=== PATIENT | male | born 1955 | race African-American/Black ===

== ENCOUNTER 2018-07-11 07:57 | Emergency (ER) | payer MEDICARE, MEDICAID ==
[~2018-07-11] VITALS: Ht 172.7 cm; Wt 75.0 kg
[2018-07-11] MEDS ORDERED: ATEN-42 PO (08:02)
[2018-07-11 08:26] VITALS: BP 134/76
[2018-07-11] MEDS ORDERED: SODIUM CHLORIDE 0.9% 1,000 ML IV ONE (09:19)
[2018-07-11 09:23] LABS: BASOPHILS % 0.5 % (0.0-2.0); HEMATOCRIT. 31.7 % (42.0-52.0); HEMOGLOBIN. 10.2 g/dL (14.0-18.0); LYMPHOCYTES % 8.3 % (20.0-50.0); MEAN CORPUSCULAR HEMOGLOBIN 29.9 pg (28.0-32.0); MEAN CORPUSCULAR VOLUME 93.3 fL (80.0-94.0); MONOCYTES % 7.3 % (2.0-8.0); NEUTROPHILS % 82.9 % (40.0-76.0); PLATELET 196 x1000/uL (130-400); RED CELL DISTRIBUTION WIDTH 18.8 % (11.6-14.6)
[2018-07-11 09:29] LABS: CHLORIDE 100 mEq/L (98-107)
== END 2018-07-11 12:00 | disposition home or self-care (01) ==
LOC: ER 07:57
DX: R55 Syncope and collapse (principal); N28.9 Disorder of kidney and ureter, unspecified; M19.90 Unspecified osteoarthritis, unspecified site; I10 Essential (primary) hypertension; G89.29 Other chronic pain; M54.9 Dorsalgia, unspecified; I12.9 Hypertensive chronic kidney disease with stage 1 through stage 4 chronic kidney disease, or unspecified chronic kidney disease; Z88.0 Allergy status to penicillin; Z88.6 Allergy status to analgesic agent
CPT/HCPCS: 36415; 70450; 71045; 80053; 84484; 85025; 93005; 96360; 99284; J7030

== ENCOUNTER 2019-04-22 10:25 | Inpatient (IN) | payer MEDICARE, MEDICAID ==
[~2019-04-22] VITALS: Ht 175.3 cm; Wt 74.4 kg
[~2019-04-22 10:25] MED LIST: ATEN-42 PO
[2019-04-22] MEDS ORDERED: SODIUM CHLORIDE 0.9% 1,000 ML IV ONE ×2 (10:55→12:14)
[2019-04-22 11:52] LABS: HEMATOCRIT. 30.6 % (42.0-52.0); MEAN CORPUSCULAR HEMOGLOBIN 30.5 pg (28.0-32.0); MEAN CORPUSCULAR VOLUME 93.3 fL (80.0-94.0); MEAN PLATELET VOLUME 9.8 fl (7.4-10.4); PLATELET 216 x1000/uL (130-400); RED BLOOD CELL COUNT 3.28 mill/uL (4.7-6.1); RED CELL DISTRIBUTION WIDTH 15.1 % (11.6-14.6)
[2019-04-22 11:59] LABS: INR 1.1; PROTHROMBIN TIME 11.8 sec (9.6-11.0)
[2019-04-22 12:00] LABS: CHLORIDE 111 mEq/L (98-107)
[2019-04-22 12:06] LABS: ETHANOL BLOOD 143 mg/dL
[2019-04-22 12:19] LABS: PLATELET ESTIMATE NORMAL
[2019-04-22 12:48] LABS: CLARITY URINE CLEAR (CLEAR); COLOR URINE YELLOW (YELLOW); KETONES URINE TRACE (NEGATIVE); LEUKOCYTE ESTERASE URINE 1+ (NEGATIVE); NITRITE URINE NEGATIVE (NEGATIVE); OCCULT BLOOD URINE NEGATIVE (NEGATIVE); PROTEIN URINE NEGATIVE (NEGATIVE); SPECIFIC GRAVITY URINE 1.028 (1.005-1.030); UROBILINOGEN URINE 0.2 E.U./dL (0.2-1.0)
[2019-04-22] MEDS ORDERED: ONDANSETRON HCL 4MG/2ML INJ IV PRN (14:00)
[2019-04-22 23:05] VITALS: BP 154/84
[2019-04-22] MEDS ORDERED: SIMV10TA97 PO (23:43)
[2019-04-22] MEDS ORDERED: GABA-531 PO (23:43)
[2019-04-22] MEDS ORDERED: HYDR-4067 PO (23:43)
[2019-04-23] VITALS: BP 154/84
[2019-04-23] MEDS: ACETAMINOPHEN 325MG TABLET PO PRN (00:14)
[2019-04-23] MEDS: HEPARIN 5000 UNITS/ML VIAL SUBCUT SCH ×3 (00:14→20:53)
[2019-04-23 04:00] VITALS: BP 146/81
[2019-04-23 06:18] LABS: *COCAINE SCREEN URINE NEGATIVE (NEGATIVE); CANNABINOID URINE SCREEN NEGATIVE (NEGATIVE); METHADONE URINE SCREEN NEGATIVE (NEGATIVE); OPIATES URINE SCREEN NEGATIVE (NEGATIVE); PHENCYCLIDINE URINE SCREEN NEGATIVE (NEGATIVE)
[2019-04-23 06:19] LABS: *AMPHETAMINES SCREEN URINE NEGATIVE (NEGATIVE); *BARBITURATES SCREEN URINE NEGATIVE (NEGATIVE); *BENZODIAZEPINES SCREEN URINE NEGATIVE (NEGATIVE)
[2019-04-23 07:42] LABS: BASOPHILS % 0.2 % (0.0-2.0); EOSINOPHILS % 3.3 % (0.0-5.0); HEMOGLOBIN. 9.2 g/dL (14.0-18.0); LYMPHOCYTES % 23.7 % (20.0-50.0); MEAN CORPUSCULAR HEMOGLOBIN 30.5 pg (28.0-32.0); MEAN CORPUSCULAR VOLUME 92.2 fL (80.0-94.0); MEAN PLATELET VOLUME 10.5 fl (7.4-10.4); MONOCYTES % 13.1 % (2.0-8.0); NEUTROPHILS % 59.7 % (40.0-76.0); PLATELET 181 x1000/uL (130-400); RED BLOOD CELL COUNT 3.03 mill/uL (4.7-6.1); RED CELL DISTRIBUTION WIDTH 15.1 % (11.6-14.6)
[2019-04-23 08:00] VITALS: BP 157/63
[2019-04-23] MEDS ORDERED: AMLODIPINE 5MG TABLET PO SCH (08:00)
[2019-04-23 08:04] LABS: CHLORIDE 113 mEq/L (98-107)
[2019-04-23 12:00] VITALS: BP_SYST 143; BP_SYST 149; BP_SYST 164; BP_DIAS 74; BP_DIAS 81; BP_DIAS 86
[2019-04-23] MEDS: SODIUM CHLORIDE 0.9% 1,000 ML IV SCH ×2 (13:43→23:30)
[2019-04-23] MEDS: CHLORDIAZEPOXIDE 5 MG CAPSULE PO SCH ×2 (13:43→20:52)
[2019-04-23] MEDS: FOLIC ACID 1MG TABLET PO SCH (13:44)
[2019-04-23] MEDS: THIAMINE HCL 100MG TABLET PO SCH (13:44)
[2019-04-23] MEDS: HYDROCODONE/ACETAMINOPHEN 5/325MG TABLET PO PRN ×2 (13:44→20:52)
[2019-04-23 16:02] VITALS: BP 150/91
[2019-04-23 20:43] VITALS: BP 140/86
[2019-04-24] VITALS: BP 144/83
[2019-04-24 04:00] VITALS: BP_SYST 132; BP_SYST 136; BP_SYST 137; BP_SYST 145; BP_DIAS 77; BP_DIAS 80; BP_DIAS 81; BP_DIAS 88
[2019-04-24] MEDS: CHLORDIAZEPOXIDE 5 MG CAPSULE PO SCH ×3 (05:24→21:12)
[2019-04-24] MEDS: HYDROCODONE/ACETAMINOPHEN 5/325MG TABLET PO PRN (06:59)
[2019-04-24 07:06] LABS: BASOPHILS % 0.4 % (0.0-2.0); EOSINOPHILS % 3.6 % (0.0-5.0); HEMATOCRIT. 31.1 % (42.0-52.0); HEMOGLOBIN. 10.3 g/dL (14.0-18.0); LYMPHOCYTES % 23.5 % (20.0-50.0); MEAN CORPUSCULAR HEMOGLOBIN 30.4 pg (28.0-32.0); MEAN CORPUSCULAR VOLUME 91.8 fL (80.0-94.0); MONOCYTES % 12.3 % (2.0-8.0); NEUTROPHILS % 60.2 % (40.0-76.0); PLATELET 195 x1000/uL (130-400); RED BLOOD CELL COUNT 3.39 mill/uL (4.7-6.1); RED CELL DISTRIBUTION WIDTH 14.8 % (11.6-14.6)
[2019-04-24 08:00] VITALS: BP 150/90
[2019-04-24 09:03] LABS: CHLORIDE 109 mEq/L (98-107)
[2019-04-24 09:11] LABS: TOTAL IRON BINDING CAPACITY 291 ug/dL (250-450)
[2019-04-24] MEDS: FOLIC ACID 1MG TABLET PO SCH (09:30)
[2019-04-24] MEDS: THIAMINE HCL 100MG TABLET PO SCH (09:30)
[2019-04-24] MEDS: HEPARIN 5000 UNITS/ML VIAL SUBCUT SCH ×2 (09:30→21:12)
[2019-04-24 12:05] VITALS: BP_SYST 141; BP_SYST 156; BP_DIAS 92
[2019-04-24 12:12] LABS: FOLIC ACID (FOLATE) SERUM 9.1 ng/mL (>5.38)
[2019-04-24] MEDS: FERROUS SULFATE 325MG TABLET PO SCH ×2 (13:37→17:52)
[2019-04-24] MEDS: SODIUM CHLORIDE 0.9% 1,000 ML IV SCH (13:38)
[2019-04-24] MEDS ORDERED: MAGNESIUM 2 G PREMIX 50 ML IV NR (14:00)
[2019-04-24 16:00] VITALS: BP 141/92
[2019-04-24 20:00] VITALS: BP_SYST 135; BP_SYST 149; BP_DIAS 82; BP_DIAS 95
[2019-04-25] VITALS: BP 152/91
[2019-04-25 04:00] VITALS: BP 146/85
[2019-04-25] MEDS: SODIUM CHLORIDE 0.9% 1,000 ML IV SCH ×2 (05:08→13:50)
[2019-04-25] MEDS: HYDROCODONE/ACETAMINOPHEN 5/325MG TABLET PO PRN (05:08)
[2019-04-25] MEDS: CHLORDIAZEPOXIDE 5 MG CAPSULE PO SCH ×3 (05:09→21:37)
[2019-04-25] MEDS: FERROUS SULFATE 325MG TABLET PO SCH ×3 (06:21→18:18)
[2019-04-25 08:00] VITALS: BP_SYST 132; BP_SYST 146; BP_DIAS 80; BP_DIAS 88
[2019-04-25] MEDS: HEPARIN 5000 UNITS/ML VIAL SUBCUT SCH ×2 (09:27→21:42)
[2019-04-25] MEDS: THIAMINE HCL 100MG TABLET PO SCH (09:27)
[2019-04-25] MEDS: ASCORBIC ACID 500 MG TABLET PO SCH (09:27)
[2019-04-25] MEDS: FOLIC ACID 1MG TABLET PO SCH (09:27)
[2019-04-25] MEDS: CYANOCOBALAMIN 1000MCG/ML VIAL IM SCH (10:00)
[2019-04-25 12:00] VITALS: BP 130/86
[2019-04-25] MEDS: MULTIVITAMINS,THER W-MINERALS TABLET PO SCH (13:49)
[2019-04-25 16:00] VITALS: BP 131/83
[2019-04-25 20:00] VITALS: BP_SYST 126; BP_SYST 128; BP_SYST 138; BP_DIAS 84; BP_DIAS 87
[2019-04-26] VITALS: BP 145/86
[2019-04-26] MEDS: SODIUM CHLORIDE 0.9% 1,000 ML IV SCH ×2 (00:37→14:35)
[2019-04-26 04:00] VITALS: BP 128/81
[2019-04-26] MEDS: CHLORDIAZEPOXIDE 5 MG CAPSULE PO SCH ×3 (06:22→21:42)
[2019-04-26] MEDS: FERROUS SULFATE 325MG TABLET PO SCH ×3 (07:02→17:33)
[2019-04-26 08:00] VITALS: BP_SYST 119; BP_SYST 123; BP_SYST 129; BP_DIAS 78; BP_DIAS 79; BP_DIAS 87
[2019-04-26] MEDS: ASCORBIC ACID 500 MG TABLET PO SCH (09:15)
[2019-04-26] MEDS: FOLIC ACID 1MG TABLET PO SCH (09:15)
[2019-04-26] MEDS: THIAMINE HCL 100MG TABLET PO SCH (09:15)
[2019-04-26] MEDS: CYANOCOBALAMIN 1000MCG/ML VIAL IM SCH (09:16)
[2019-04-26] MEDS: MULTIVITAMINS,THER W-MINERALS TABLET PO SCH (09:16)
[2019-04-26] MEDS: HEPARIN 5000 UNITS/ML VIAL SUBCUT SCH ×2 (09:16→21:43)
[2019-04-26 12:00] VITALS: BP 132/79
[2019-04-26] MEDS: GABAPENTIN 300MG CAPSULE PO SCH ×2 (14:34→21:42)
[2019-04-26] MEDS: MAGNESIUM GLUCONATE 500MG TABLET PO SCH (14:35)
[2019-04-26 16:00] VITALS: BP 140/82
[2019-04-26 20:00] VITALS: BP 125/83
[2019-04-26] MEDS: ATORVASTATIN CALCIUM 40MG TABLET PO SCH (21:42)
[2019-04-27] VITALS: BP 133/82
[2019-04-27] MEDS: SODIUM CHLORIDE 0.9% 1,000 ML IV SCH ×2 (02:40→16:14)
[2019-04-27 04:00] VITALS: BP_SYST 119; BP_SYST 125; BP_DIAS 78; BP_DIAS 85
[2019-04-27] MEDS: FERROUS SULFATE 325MG TABLET PO SCH ×3 (06:26→16:15)
[2019-04-27] MEDS: CHLORDIAZEPOXIDE 5 MG CAPSULE PO SCH ×2 (06:26→21:28)
[2019-04-27] MEDS: ACETAMINOPHEN 325MG TABLET PO PRN (06:26)
[2019-04-27 07:59] LABS: BASOPHILS % 0.3 % (0.0-2.0); HEMATOCRIT. 33.2 % (42.0-52.0); HEMOGLOBIN. 10.9 g/dL (14.0-18.0); LYMPHOCYTES % 21.9 % (20.0-50.0); MEAN CORPUSCULAR HEMOGLOBIN 30.1 pg (28.0-32.0); MEAN CORPUSCULAR VOLUME 91.4 fL (80.0-94.0); MEAN PLATELET VOLUME 10.9 fl (7.4-10.4); MONOCYTES % 11.3 % (2.0-8.0); NEUTROPHILS % 61.5 % (40.0-76.0); PLATELET 208 x1000/uL (130-400); RED BLOOD CELL COUNT 3.63 mill/uL (4.7-6.1); RED CELL DISTRIBUTION WIDTH 15.2 % (11.6-14.6)
[2019-04-27 08:00] VITALS: BP 126/84
[2019-04-27] MEDS: ASCORBIC ACID 500 MG TABLET PO SCH (08:47)
[2019-04-27] MEDS: MAGNESIUM GLUCONATE 500MG TABLET PO SCH (08:47)
[2019-04-27] MEDS: GABAPENTIN 300MG CAPSULE PO SCH ×2 (08:48→21:27)
[2019-04-27] MEDS: FOLIC ACID 1MG TABLET PO SCH (08:48)
[2019-04-27] MEDS: CYANOCOBALAMIN 1000MCG/ML VIAL IM SCH (08:48)
[2019-04-27] MEDS: HYDROCODONE/ACETAMINOPHEN 5/325MG TABLET PO PRN (08:48)
[2019-04-27] MEDS: MULTIVITAMINS,THER W-MINERALS TABLET PO SCH (08:48)
[2019-04-27] MEDS: THIAMINE HCL 100MG TABLET PO SCH (08:48)
[2019-04-27] MEDS: HEPARIN 5000 UNITS/ML VIAL SUBCUT SCH ×2 (08:49→21:29)
[2019-04-27 12:00] VITALS: BP 129/76
[2019-04-27 13:28] LABS: CHLORIDE 110 mEq/L (98-107)
[2019-04-27 16:00] VITALS: BP 111/69
[2019-04-27 20:00] VITALS: BP 133/76
[2019-04-27] MEDS: ATORVASTATIN CALCIUM 40MG TABLET PO SCH (21:27)
[2019-04-28] VITALS: BP 124/75
[2019-04-28 04:00] VITALS: BP 126/86
[2019-04-28] MEDS: SODIUM CHLORIDE 0.9% 1,000 ML IV SCH ×2 (04:50→17:57)
[2019-04-28] MEDS: FERROUS SULFATE 325MG TABLET PO SCH ×3 (06:30→17:56)
[2019-04-28 08:00] VITALS: BP 123/65
[2019-04-28 08:09] LABS: 25-HYDROXY VITAMIN D3 18 ng/mL (.)
[2019-04-28] MEDS: GABAPENTIN 300MG CAPSULE PO SCH ×2 (09:36→21:46)
[2019-04-28] MEDS: THIAMINE HCL 100MG TABLET PO SCH (09:36)
[2019-04-28] MEDS: CHLORDIAZEPOXIDE 5 MG CAPSULE PO SCH (09:36)
[2019-04-28] MEDS: FOLIC ACID 1MG TABLET PO SCH (09:36)
[2019-04-28] MEDS: ASCORBIC ACID 500 MG TABLET PO SCH (09:37)
[2019-04-28] MEDS: HEPARIN 5000 UNITS/ML VIAL SUBCUT SCH ×2 (09:37→21:47)
[2019-04-28] MEDS: CYANOCOBALAMIN 1000MCG/ML VIAL IM SCH (09:37)
[2019-04-28] MEDS: MAGNESIUM GLUCONATE 500MG TABLET PO SCH (09:37)
[2019-04-28] MEDS: MULTIVITAMINS,THER W-MINERALS TABLET PO SCH (09:37)
[2019-04-28 12:00] VITALS: BP 140/89
[2019-04-28] MEDS ORDERED: EZ-HD SUSPENSION(BARIUM SULFATE 340GM) PO ONE (13:44)
[2019-04-28] MEDS ORDERED: BARIUM SULFATE 176 GM SUSP.RECON ONE (13:45)
[2019-04-28 16:00] VITALS: BP 129/85
[2019-04-28 20:00] VITALS: BP 124/84
[2019-04-28] MEDS: ATORVASTATIN CALCIUM 40MG TABLET PO SCH (21:46)
[2019-04-29] VITALS: BP 135/74
[2019-04-29 04:00] VITALS: BP 130/74
[2019-04-29] MEDS: SODIUM CHLORIDE 0.9% 1,000 ML IV SCH (05:29)
[2019-04-29] MEDS: FERROUS SULFATE 325MG TABLET PO SCH ×2 (06:29→12:26)
[2019-04-29 06:31] LABS: BASOPHILS % 0.6 % (0.0-2.0); EOSINOPHILS % 5.3 % (0.0-5.0); HEMATOCRIT. 30.8 % (42.0-52.0); HEMOGLOBIN. 10.1 g/dL (14.0-18.0); MEAN CORPUSCULAR HEMOGLOBIN 30.1 pg (28.0-32.0); MEAN CORPUSCULAR VOLUME 91.9 fL (80.0-94.0); MEAN PLATELET VOLUME 11.1 fl (7.4-10.4); MONOCYTES % 8.7 % (2.0-8.0); NEUTROPHILS % 64.4 % (40.0-76.0); PLATELET 185 x1000/uL (130-400); RED BLOOD CELL COUNT 3.35 mill/uL (4.7-6.1); RED CELL DISTRIBUTION WIDTH 14.8 % (11.6-14.6)
[2019-04-29 07:38] LABS: CHLORIDE 108 mEq/L (98-107)
[2019-04-29 08:00] VITALS: BP 136/72
[2019-04-29] MEDS ORDERED: CHLORDIAZEPOXIDE 5 MG CAPSULE PO SCH (09:00)
[2019-04-29] MEDS: THIAMINE HCL 100MG TABLET PO SCH (09:56)
[2019-04-29] MEDS: ASCORBIC ACID 500 MG TABLET PO SCH (09:56)
[2019-04-29] MEDS: MULTIVITAMINS,THER W-MINERALS TABLET PO SCH (09:56)
[2019-04-29] MEDS: FOLIC ACID 1MG TABLET PO SCH (09:56)
[2019-04-29] MEDS: GABAPENTIN 300MG CAPSULE PO SCH (09:56)
[2019-04-29] MEDS: CYANOCOBALAMIN 1000MCG/ML VIAL IM SCH (09:57)
[2019-04-29] MEDS: HEPARIN 5000 UNITS/ML VIAL SUBCUT SCH (09:57)
[2019-04-29] MEDS: MAGNESIUM GLUCONATE 500MG TABLET PO SCH (09:57)
[2019-04-29 12:00] VITALS: BP 126/76
[2019-04-29 16:00] VITALS: BP 126/76
[2019-04-29] MEDS ORDERED: CHLORDIAZEPOXIDE 5 MG CAPSULE PO PRN (19:06)
[2019-04-29] MEDS ORDERED: OMEPRAZOLE 20MG CAPSULE EXTENDED RELEASE PO SCH (21:00)
[2019-04-29] MEDS ORDERED: ERGOCALCIFEROL 50000UNITS CAPSULE PO SCH (21:30)
[2019-05-02] MEDS ORDERED: CYANOCOBALAMIN 1000MCG/ML VIAL IM SCH (10:00)
== END 2019-04-29 20:31 | DRG 73 ==
LOC: ER 10:25 → 5WST 13:17 → EDBEDREQTM 13:22 → EDBEDREQ 13:22 → ENRESERV 21:54 → CANBEDREQ 04-23 16:07
PROVIDERS: ADMIT Family Medicine Adult Medicine; ATTEND Family Medicine Adult Medicine
PROC: 4A00X4Z Measurement of Central Nervous Electrical Activity, External Approach (ICD-10-PCS; principal; 2019-04-27)
DX: G90.8 Other disorders of autonomic nervous system (principal); G82.50 Quadriplegia, unspecified; G92 Toxic encephalopathy; E87.2 Acidosis; K52.9 Noninfective gastroenteritis and colitis, unspecified; E86.0 Dehydration; G89.4 Chronic pain syndrome; I10 Essential (primary) hypertension; F10.20 Alcohol dependence, uncomplicated; R53.81 Other malaise; D64.9 Anemia, unspecified; M48.02 Spinal stenosis, cervical region; M48.061 Spinal stenosis, lumbar region without neurogenic claudication; M47.812 Spondylosis without myelopathy or radiculopathy, cervical region; M50.30 Other cervical disc degeneration, unspecified cervical region; M51.36 Other intervertebral disc degeneration, lumbar region; Y90.6 Blood alcohol level of 120-199 mg/100 ml; E55.9 Vitamin D deficiency, unspecified; R47.02 Dysphasia; R26.9 Unspecified abnormalities of gait and mobility; R13.10 Dysphagia, unspecified; E78.5 Hyperlipidemia, unspecified; Z79.899 Other long term (current) drug therapy; Z59.0 Homelessness; Z87.891 Personal history of nicotine dependence; Z88.0 Allergy status to penicillin; Z88.6 Allergy status to analgesic agent
CPT/HCPCS: 36415; 70544; 70551; 71045; 72052; 72141; 72146; 72148; 74220; 80048; 80053; 80061; 80305; 80320; 81003; 82306; 82607; 82746; 83036; 83540; 83550; 83605; 83735; 84443; 84484; 85025; 92610; 93005; 93306; 93880; 93970; 97162; 97166; 97530; 99285; J1644; J3420; J3475; J7030; G0480

== ENCOUNTER 2020-10-24 12:23 | Inpatient (IN) | payer MEDICARE, MEDICAID ==
[~2020-10-24] VITALS: Ht 172.7 cm; Wt 83.5 kg
[~2020-10-24 12:23] MED LIST changes: -ATEN-42 PO; +GABA-532 PO; +HYDR-4067 PO; +SIMV10TA97 PO
[2020-10-24] MEDS ORDERED: MORPHINE SULFATE 4 MG/ML CPJ (NOT FOR IM USE) IV STA (12:40)
[2020-10-24] MEDS ORDERED: ONDANSETRON HCL 4MG/2ML INJ IV STA (12:40)
[2020-10-24] MEDS ORDERED: SODIUM CHLORIDE 0.9% 1,000 ML IV ONE (12:45)
[2020-10-24 13:35] LABS: BASOPHILS % 0.3 % (0.0-2.0); EOSINOPHILS % 0.5 % (0.0-5.0); HEMATOCRIT. 21.3 % (42.0-52.0); LYMPHOCYTES % 21.2 % (20.0-50.0); MEAN CORPUSCULAR HEMOGLOBIN 32.3 pg (28.0-32.0); MEAN CORPUSCULAR VOLUME 99.2 fL (80.0-94.0); MONOCYTES % 5.7 % (2.0-8.0); NEUTROPHILS % 72.3 % (40.0-76.0); PLATELET 162 x1000/uL (130-400); RED BLOOD CELL COUNT 2.15 mill/uL (4.7-6.1); RED CELL DISTRIBUTION WIDTH 14.3 % (11.6-14.6)
[2020-10-24 13:37] LABS: CHLORIDE 110 mEq/L (98-107)
[2020-10-24 13:41] LABS: HEMOGLOBIN. 6.9 g/dL (14.0-18.0)
[2020-10-24 13:42] LABS: INR 1.2; PARTIAL THROMBOPLASTIN TIME 24.8 sec (23.4-31.0); PROTHROMBIN TIME 12.6 sec (9.6-11.0)
[2020-10-24 19:50] LABS: CLARITY URINE CLEAR (CLEAR); COLOR URINE YELLOW (YELLOW); KETONES URINE TRACE (NEGATIVE); LEUKOCYTE ESTERASE URINE NEGATIVE (NEGATIVE); NITRITE URINE NEGATIVE (NEGATIVE); OCCULT BLOOD URINE NEGATIVE (NEGATIVE); PROTEIN URINE NEGATIVE (NEGATIVE); SPECIFIC GRAVITY URINE 1.015 (1.005-1.030)
[2020-10-25 01:35] VITALS: BP 141/75
[2020-10-25] MEDS ORDERED: LORA10TA7 MT (02:04)
[2020-10-25] MEDS ORDERED: D-ME473S50 (02:18)
[2020-10-25] MEDS ORDERED: ATEN-42 MT (02:18)
[2020-10-25] MEDS ORDERED: FLUT30CR TP (02:18)
[2020-10-25] MEDS ORDERED: BENA20TA10 PO (02:18)
[2020-10-25 04:00] VITALS: BP 145/80
[2020-10-25] MEDS ORDERED: OCTREOTIDE ACETATE 50 MCG/ML 1ML IV ONE (04:00)
[2020-10-25] MEDS ORDERED: ONDANSETRON HCL 4MG/2ML INJ IV PRN (04:00)
[2020-10-25] MEDS ORDERED: OCTREOTIDE 1,000 MCG in SODIUM CHLORIDE 0.9% 98 ML IV ONE (06:00)
[2020-10-25] MEDS: MORPHINE SULFATE 2 MG/ML CPJ (NOT FOR IM USE) IV PRN ×2 (06:28→10:39)
[2020-10-25] MEDS: PANTOPRAZOLE 80 MG in SODIUM CHLORIDE 0.9% 100 ML IV SCH ×2 (06:42→17:04)
[2020-10-25] MEDS: DEXT 5%/0.45% NACL KCL 20MEQ/L 1,000 ML IV SCH ×3 (06:42→18:28)
[2020-10-25] MEDS ORDERED: NALOXONE HCL 0.4MG/ML VIAL IV PRN (06:45)
[2020-10-25 08:00] VITALS: BP 152/64
[2020-10-25 11:49] LABS: CHLORIDE 111 mEq/L (98-107)
[2020-10-25 12:00] VITALS: BP 141/78
[2020-10-25 16:00] VITALS: BP 150/63
[2020-10-25 16:18] LABS: BASOPHILS % 0.3 % (0.0-2.0); EOSINOPHILS % 1.1 % (0.0-5.0); LYMPHOCYTES % 23.1 % (20.0-50.0); MEAN CORPUSCULAR HEMOGLOBIN 32.7 pg (28.0-32.0); MEAN CORPUSCULAR VOLUME 98.6 fL (80.0-94.0); MEAN PLATELET VOLUME 10.6 fl (7.4-10.4); MONOCYTES % 7.5 % (2.0-8.0); PLATELET 146 x1000/uL (130-400); RED BLOOD CELL COUNT 1.98 mill/uL (4.7-6.1); RED CELL DISTRIBUTION WIDTH 14.7 % (11.6-14.6)
[2020-10-25 16:41] LABS: HEMATOCRIT. 19.5 % (42.0-52.0); HEMOGLOBIN. 6.5 g/dL (14.0-18.0)
[2020-10-25 17:04] LABS: FOLIC ACID (FOLATE) SERUM 4.1 ng/mL (>5.38)
[2020-10-25 20:00] VITALS: BP 114/76
[2020-10-25] MEDS: IRON SUCROSE COMPLEX 100 MG/5 ML ML IV SCH (20:03)
[2020-10-25] MEDS ORDERED: EPOETIN ALFA-EPBX 4,000 UNIT/ML VIAL SUBCUT NR (21:00)
[2020-10-25] MEDS: GABAPENTIN 100MG CAPSULE PO SCH (21:07)
[2020-10-26] VITALS: BP 126/78
[2020-10-26] MEDS: PANTOPRAZOLE 80 MG in SODIUM CHLORIDE 0.9% 100 ML IV SCH ×2 (03:36→20:38)
[2020-10-26] MEDS: DEXT 5%/0.45% NACL KCL 20MEQ/L 1,000 ML IV SCH (04:00)
[2020-10-26 04:15] VITALS: BP 119/62
[2020-10-26] MEDS: GABAPENTIN 100MG CAPSULE PO SCH ×3 (05:20→22:00)
[2020-10-26] MEDS: HYDROCODONE/ACETAMINOPHEN 5/325MG TABLET PO PRN ×2 (05:20→09:40)
[2020-10-26 06:43] LABS: BASOPHILS % 0.3 % (0.0-2.0); EOSINOPHILS % 2.7 % (0.0-5.0); HEMATOCRIT. 21.3 % (42.0-52.0); LYMPHOCYTES % 18.5 % (20.0-50.0); MEAN CORPUSCULAR VOLUME 99.9 fL (80.0-94.0); MEAN PLATELET VOLUME 11.1 fl (7.4-10.4); MONOCYTES % 9.7 % (2.0-8.0); NEUTROPHILS % 68.8 % (40.0-76.0); PLATELET 167 x1000/uL (130-400); RED BLOOD CELL COUNT 2.13 mill/uL (4.7-6.1); RED CELL DISTRIBUTION WIDTH 14.7 % (11.6-14.6)
[2020-10-26 06:51] LABS: CHLORIDE 110 mEq/L (98-107)
[2020-10-26 08:00] VITALS: BP 126/68
[2020-10-26] MEDS ORDERED: DOCU-138 MT (08:40)
[2020-10-26] MEDS ORDERED: FERR-71 MT (08:40)
[2020-10-26] MEDS ORDERED: OMEP40CA12 MT (08:40)
[2020-10-26] MEDS: LORATADINE 10MG TABLET PO SCH (09:39)
[2020-10-26] MEDS: AMLODIPINE 10MG TABLET PO SCH (09:40)
[2020-10-26 12:00] VITALS: BP 132/66
[2020-10-26 16:00] VITALS: BP 131/71
[2020-10-26 20:00] VITALS: BP 143/69
[2020-10-26] MEDS: IRON SUCROSE COMPLEX 100 MG/5 ML ML IV SCH (20:39)
[2020-10-27] VITALS: BP 138/66
[2020-10-27 04:00] VITALS: BP 141/84
[2020-10-27] MEDS: PANTOPRAZOLE 80 MG in SODIUM CHLORIDE 0.9% 100 ML IV SCH ×2 (05:51→18:15)
[2020-10-27] MEDS: GABAPENTIN 100MG CAPSULE PO SCH ×3 (05:52→21:49)
[2020-10-27] MEDS: HYDROCODONE/ACETAMINOPHEN 5/325MG TABLET PO PRN ×3 (06:00→15:22)
[2020-10-27] MEDS: AMLODIPINE 10MG TABLET PO SCH (10:05)
[2020-10-27] MEDS: LORATADINE 10MG TABLET PO SCH (10:06)
[2020-10-27] MEDS ORDERED: PANTOPRAZOLE SODIUM 40 MG/VIAL IV ONE (15:20)
[2020-10-27 17:00] VITALS: BP 143/81
[2020-10-27 20:00] VITALS: BP 139/85
[2020-10-27] MEDS: IRON SUCROSE COMPLEX 100 MG/5 ML ML IV SCH (20:41)
[2020-10-28] VITALS: BP 134/82
[2020-10-28] MEDS: PANTOPRAZOLE 80 MG in SODIUM CHLORIDE 0.9% 100 ML IV SCH ×3 (01:57→21:53)
[2020-10-28 04:00] VITALS: BP 131/78
[2020-10-28] MEDS: GABAPENTIN 100MG CAPSULE PO SCH ×3 (05:38→21:07)
[2020-10-28] MEDS: HYDROCODONE/ACETAMINOPHEN 5/325MG TABLET PO PRN ×2 (06:35→13:35)
[2020-10-28 08:00] VITALS: BP 139/90
[2020-10-28] MEDS: AMLODIPINE 10MG TABLET PO SCH (10:42)
[2020-10-28] MEDS: LORATADINE 10MG TABLET PO SCH (10:46)
[2020-10-28 12:00] VITALS: BP 168/85
[2020-10-28 16:00] VITALS: BP 144/91
[2020-10-28] MEDS: FOLIC ACID 1MG TABLET PO SCH (18:10)
[2020-10-28] MEDS: FERROUS SULFATE 325MG TABLET PO SCH (18:10)
[2020-10-28] MEDS: ASCORBIC ACID 500 MG TABLET PO SCH (18:10)
[2020-10-28 20:00] VITALS: BP 120/82
[2020-10-29] VITALS: BP 132/87
[2020-10-29 04:00] VITALS: BP 132/76
[2020-10-29] MEDS: GABAPENTIN 100MG CAPSULE PO SCH ×3 (05:24→21:27)
[2020-10-29 06:59] LABS: BASOPHILS % 0.1 % (0.0-2.0); EOSINOPHILS % 1.5 % (0.0-5.0); HEMOGLOBIN. 8.1 g/dL (14.0-18.0); LYMPHOCYTES % 13.7 % (20.0-50.0); MEAN CORPUSCULAR HEMOGLOBIN 32.5 pg (28.0-32.0); MEAN CORPUSCULAR VOLUME 100.6 fL (80.0-94.0); MEAN PLATELET VOLUME 10.5 fl (7.4-10.4); MONOCYTES % 9.8 % (2.0-8.0); NEUTROPHILS % 74.9 % (40.0-76.0); PLATELET 189 x1000/uL (130-400); RED BLOOD CELL COUNT 2.48 mill/uL (4.7-6.1); RED CELL DISTRIBUTION WIDTH 16.4 % (11.6-14.6)
[2020-10-29 07:11] LABS: CHLORIDE 107 mEq/L (98-107)
[2020-10-29 08:00] VITALS: BP 140/88
[2020-10-29] MEDS: LORATADINE 10MG TABLET PO SCH (10:33)
[2020-10-29] MEDS: ASCORBIC ACID 500 MG TABLET PO SCH (10:33)
[2020-10-29] MEDS: AMLODIPINE 10MG TABLET PO SCH (10:33)
[2020-10-29] MEDS: FOLIC ACID 1MG TABLET PO SCH (10:33)
[2020-10-29] MEDS: PANTOPRAZOLE 80 MG in SODIUM CHLORIDE 0.9% 100 ML IV SCH ×2 (10:34→21:49)
[2020-10-29] MEDS: FERROUS SULFATE 325MG TABLET PO SCH ×2 (10:37→19:03)
[2020-10-29] MEDS: HYDROCODONE/ACETAMINOPHEN 5/325MG TABLET PO PRN ×3 (10:59→21:28)
[2020-10-29 12:00] VITALS: BP 135/78
[2020-10-29 16:00] VITALS: BP 114/85
[2020-10-29 20:00] VITALS: BP 133/85
[2020-10-29] MEDS ORDERED: PANTOPRAZOLE SODIUM 40 MG/VIAL IV ONE (21:50)
[2020-10-30] VITALS (7 sets, daily range): BP systolic 126–148; BP diastolic 69–81
[2020-10-30] MEDS: GABAPENTIN 100MG CAPSULE PO SCH ×3 (06:12→21:10)
[2020-10-30 06:47] LABS: BASOPHILS % 0.3 % (0.0-2.0); EOSINOPHILS % 1.8 % (0.0-5.0); HEMATOCRIT. 21.1 % (42.0-52.0); HEMOGLOBIN. 7.1 g/dL (14.0-18.0); LYMPHOCYTES % 12.9 % (20.0-50.0); MEAN CORPUSCULAR VOLUME 98.5 fL (80.0-94.0); MEAN PLATELET VOLUME 10.8 fl (7.4-10.4); MONOCYTES % 12.9 % (2.0-8.0); NEUTROPHILS % 72.1 % (40.0-76.0); PLATELET 166 x1000/uL (130-400); RED BLOOD CELL COUNT 2.14 mill/uL (4.7-6.1); RED CELL DISTRIBUTION WIDTH 16.1 % (11.6-14.6)
[2020-10-30 07:12] LABS: CHLORIDE 108 mEq/L (98-107)
[2020-10-30] MEDS: AMLODIPINE 10MG TABLET PO SCH (09:18)
[2020-10-30] MEDS: LORATADINE 10MG TABLET PO SCH (09:18)
[2020-10-30] MEDS: ASCORBIC ACID 500 MG TABLET PO SCH (09:18)
[2020-10-30] MEDS: FOLIC ACID 1MG TABLET PO SCH (09:18)
[2020-10-30] MEDS: HYDROCODONE/ACETAMINOPHEN 5/325MG TABLET PO PRN (09:21)
[2020-10-30] MEDS: FERROUS SULFATE 325MG TABLET PO SCH ×2 (09:29→16:52)
[2020-10-30] MEDS: PANTOPRAZOLE 80 MG in SODIUM CHLORIDE 0.9% 100 ML IV SCH (14:21)
[2020-10-30] MEDS ORDERED: HYDROCODONE/ACETAMINOPHEN 5/325MG TABLET PO PRN (20:00)
[2020-10-31] VITALS: BP 122/77
[2020-10-31 04:00] VITALS: BP 112/66
[2020-10-31] MEDS: GABAPENTIN 100MG CAPSULE PO SCH ×3 (05:28→21:55)
[2020-10-31] MEDS ORDERED: NALOXONE HCL 0.4MG/ML VIAL IV PRN (06:15)
[2020-10-31] MEDS: HYDROCODONE/ACETAMINOPHEN 5/325MG TABLET PO PRN ×2 (06:34→21:56)
[2020-10-31] MEDS: FERROUS SULFATE 325MG TABLET PO SCH ×2 (07:40→17:40)
[2020-10-31 08:00] VITALS: BP 123/75
[2020-10-31] MEDS: AMLODIPINE 10MG TABLET PO SCH (11:16)
[2020-10-31] MEDS: LORATADINE 10MG TABLET PO SCH (11:16)
[2020-10-31] MEDS: FOLIC ACID 1MG TABLET PO SCH (11:16)
[2020-10-31] MEDS: ASCORBIC ACID 500 MG TABLET PO SCH (11:16)
[2020-10-31 12:00] VITALS: BP 118/72
[2020-10-31] MEDS ORDERED: METOPROLOL TARTRATE 25MG TABLET PO SCH (12:15)
[2020-10-31 16:00] VITALS: BP 125/78
[2020-10-31 20:00] VITALS: BP 109/77
[2020-10-31] MEDS: PANTOPRAZOLE 80 MG in SODIUM CHLORIDE 0.9% 100 ML IV SCH (20:00)
[2020-11-01] VITALS: BP 117/73
[2020-11-01] MEDS: HYDROCODONE/ACETAMINOPHEN 5/325MG TABLET PO PRN (03:49)
[2020-11-01 04:00] VITALS: BP 118/72
[2020-11-01] MEDS: GABAPENTIN 100MG CAPSULE PO SCH ×2 (06:59→14:16)
[2020-11-01] MEDS: FERROUS SULFATE 325MG TABLET PO SCH (06:59)
[2020-11-01 08:00] VITALS: BP 137/60
[2020-11-01] MEDS ORDERED: PANTOPRAZOLE SODIUM 40 MG/VIAL IV ONE (11:02)
[2020-11-01] MEDS: ASCORBIC ACID 500 MG TABLET PO SCH (11:06)
[2020-11-01] MEDS: AMLODIPINE 10MG TABLET PO SCH (11:06)
[2020-11-01] MEDS: FOLIC ACID 1MG TABLET PO SCH (11:06)
[2020-11-01] MEDS: LORATADINE 10MG TABLET PO SCH (11:06)
[2020-11-01] MEDS ORDERED: EPOE200014 SQ (11:39)
[2020-11-01 12:00] VITALS: BP 121/80
[2020-11-01] MEDS: PANTOPRAZOLE 80 MG in SODIUM CHLORIDE 0.9% 100 ML IV SCH (14:16)
== END 2020-11-01 16:10 | DRG 377 ==
LOC: ER 12:38 → MICUSO 15:42 → 8WST 23:13
PROVIDERS: ADMIT Internal Medicine; ATTEND Internal Medicine
DX: K92.2 Gastrointestinal hemorrhage, unspecified (principal); N17.0 Acute kidney failure with tubular necrosis; D50.0 Iron deficiency anemia secondary to blood loss (chronic); E78.5 Hyperlipidemia, unspecified; E87.8 Other disorders of electrolyte and fluid balance, not elsewhere classified; I10 Essential (primary) hypertension; Z20.822 Contact with and (suspected) exposure to COVID-19; I25.10 Atherosclerotic heart disease of native coronary artery without angina pectoris; E53.8 Deficiency of other specified B group vitamins; D53.9 Nutritional anemia, unspecified; J44.9 Chronic obstructive pulmonary disease, unspecified; K80.20 Calculus of gallbladder without cholecystitis without obstruction; Z88.0 Allergy status to penicillin; Z88.6 Allergy status to analgesic agent; Z59.0 Homelessness
CPT/HCPCS: 36415; 71045; 73100; 74176; 80048; 80053; 80076; 81003; 82270; 82607; 82728; 82746; 83540; 83550; 83880; 84484; 85025; 86850; 86900; 87426; 93005; 93971; 97116; 97162; 97166; 97530; 99285; C9113; G0378; J0885; J2270; J2354; J2405; J7030; J7040; J7050

== ENCOUNTER 2021-05-08 06:58 | Emergency (ER) | payer MEDICARE, MEDICAID ==
[~2021-05-08] VITALS: Ht 175.3 cm; Wt 77.0 kg
[~2021-05-08 06:58] MED LIST changes: +ATEN-42 MT; +BENA20TA10 PO; +D-ME473S50; +DOCU-138 MT; +EPOE200014 SQ; +FERR-71 MT; +FLUT30CR TP; -HYDR-4067 PO; +HYDR-4797 PO; +LORA10TA7 MT; +OMEP40CA20 MT
[2021-05-08 08:42] LABS: BASOPHILS % 0.4 % (0.0-2.0); EOSINOPHILS % 0.4 % (0.0-5.0); HEMATOCRIT. 38.5 % (42.0-52.0); LYMPHOCYTES % 21.6 % (20.0-50.0); MEAN CORPUSCULAR HEMOGLOBIN 29.5 pg (28.0-32.0); MEAN CORPUSCULAR VOLUME 87.4 fL (80.0-94.0); MEAN PLATELET VOLUME 10.8 fl (7.4-10.4); MONOCYTES % 6.5 % (2.0-8.0); NEUTROPHILS % 71.1 % (40.0-76.0); PLATELET 151 x1000/uL (130-400); RED CELL DISTRIBUTION WIDTH 15.8 % (11.6-14.6)
[2021-05-08 08:45] LABS: CHLORIDE 107 mEq/L (98-107)
[2021-05-08 08:52] LABS: CLARITY URINE CLEAR (CLEAR); COLOR URINE YELLOW (YELLOW); KETONES URINE NEGATIVE (NEGATIVE); LEUKOCYTE ESTERASE URINE NEGATIVE (NEGATIVE); NITRITE URINE NEGATIVE (NEGATIVE); OCCULT BLOOD URINE NEGATIVE (NEGATIVE); PROTEIN URINE 1+ (NEGATIVE); SPECIFIC GRAVITY URINE 1.025 (1.005-1.030)
[2021-05-08] MEDS ORDERED: IBUP-2028 MT (09:50)
[2021-05-08] MEDS ORDERED: HYDR-4001 MT (09:50)
[2021-05-08 10:26] VITALS: BP 161/98
== END 2021-05-08 10:28 | disposition home or self-care (01) ==
LOC: ER 06:58
DX: S62.309A Unspecified fracture of unspecified metacarpal bone, initial encounter for closed fracture (principal); F12.10 Cannabis abuse, uncomplicated; R51.9 Headache, unspecified; I10 Essential (primary) hypertension; Z88.0 Allergy status to penicillin; Z88.6 Allergy status to analgesic agent; Z79.899 Other long term (current) drug therapy; W01.0XXA Fall on same level from slipping, tripping and stumbling without subsequent striking against object, initial encounter; Y93.89 Activity, other specified; Y92.89 Other specified places as the place of occurrence of the external cause; Y99.8 Other external cause status
CPT/HCPCS: 36415; 72100; 73110; 73130; 73502; 73551; 80053; 81003; 85025; 99285

== ENCOUNTER 2021-10-28 15:18 | Inpatient (IN) | payer MEDICARE, MEDICAID ==
[~2021-10-28] VITALS: Ht 175.3 cm; Wt 80.3 kg
[~2021-10-28 15:18] MED LIST changes: +BENA-8 PO; -BENA20TA10 PO; +HYDR-4001 MT; +IBUP-2028 MT
[2021-10-28] MEDS ORDERED: METHYLPREDNISOLONE SOD SUCC 125 MG/2 ML VIAL IV ONE (16:00)
[2021-10-28] MEDS ORDERED: IPRATROPIUM/ALBUTEROL 0.5-3(2.5)MG/3ML NEB HHN ONE (16:00)
[2021-10-28 16:19] LABS: BASOPHILS % 0.3 % (0.0-2.0); EOSINOPHILS % 0.7 % (0.0-5.0); HEMATOCRIT. 43.6 % (42.0-52.0); HEMOGLOBIN. 14.5 g/dL (14.0-18.0); LYMPHOCYTES % 10.8 % (20.0-50.0); MEAN CORPUSCULAR VOLUME 87.2 fL (80.0-94.0); MONOCYTES % 8.9 % (2.0-8.0); NEUTROPHILS % 79.3 % (40.0-76.0); PLATELET 166 x1000/uL (130-400); RED CELL DISTRIBUTION WIDTH 14.9 % (11.6-14.6)
[2021-10-28 16:26] LABS: CHLORIDE 109 mEq/L (98-107)
[2021-10-28 16:30] LABS: INR 1.2; PROTHROMBIN TIME 12.4 sec (9.6-11.0)
[2021-10-28 21:45] VITALS: BP 160/94
[2021-10-28] MEDS ORDERED: CEFTRIAXONE 1 G PREMIX 50 ML IV SCH (23:15)
[2021-10-28] MEDS ORDERED: IPRATROPIUM/ALBUTEROL 0.5-3(2.5)MG/3ML NEB HHN PRN (23:15)
[2021-10-29] VITALS: BP 157/99
[2021-10-29] MEDS: METHYLPREDNISOLONE SOD SUCC 40 MG/ML VIAL IV SCH ×4 (00:23→22:51)
[2021-10-29] MEDS: HYDROCODONE/ACETAMINOPHEN 10/325MG TABLET PO PRN ×4 (00:24→18:49)
[2021-10-29] MEDS ORDERED: AZITHROMYCIN 500 MG in DEXT 5% WATER 250 ML IV SCH (01:00)
[2021-10-29 04:00] VITALS: BP 138/87
[2021-10-29] MEDS: OMEPRAZOLE 20MG CAPSULE EXTENDED RELEASE PO SCH (06:28)
[2021-10-29 06:46] LABS: HEMATOCRIT. 39.8 % (42.0-52.0); HEMOGLOBIN. 13.1 g/dL (14.0-18.0); MEAN CORPUSCULAR HEMOGLOBIN 28.8 pg (28.0-32.0); MEAN CORPUSCULAR VOLUME 87.9 fL (80.0-94.0); MEAN PLATELET VOLUME 11.7 fl (7.4-10.4); PLATELET 149 x1000/uL (130-400); RED BLOOD CELL COUNT 4.53 mill/uL (4.7-6.1); RED CELL DISTRIBUTION WIDTH 14.5 % (11.6-14.6)
[2021-10-29 08:00] VITALS: BP 156/78
[2021-10-29] MEDS: AMLODIPINE 10MG TABLET PO SCH (09:05)
[2021-10-29 10:08] LABS: PLATELET ESTIMATE NORMAL
[2021-10-29 12:00] VITALS: BP 159/68
[2021-10-29 16:00] VITALS: BP 142/72
[2021-10-29 20:00] VITALS: BP 126/77
[2021-10-29] MEDS: ATORVASTATIN CALCIUM 20MG TABLET PO SCH (20:33)
[2021-10-29] MEDS: GABAPENTIN 300MG CAPSULE PO SCH (20:33)
[2021-10-29] MEDS: AZITHROMYCIN 500 MG TABLET PO SCH (20:38)
[2021-10-29] MEDS: IPRATROPIUM/ALBUTEROL 0.5-3(2.5)MG/3ML NEB HHN SCH (21:50)
[2021-10-30] VITALS: BP 125/77
[2021-10-30] MEDS: IPRATROPIUM/ALBUTEROL 0.5-3(2.5)MG/3ML NEB HHN SCH ×4 (01:43→21:37)
[2021-10-30] MEDS: HYDROCODONE/ACETAMINOPHEN 10/325MG TABLET PO PRN ×4 (02:35→20:29)
[2021-10-30 04:00] VITALS: BP 149/78
[2021-10-30] MEDS: OMEPRAZOLE 20MG CAPSULE EXTENDED RELEASE PO SCH (06:17)
[2021-10-30] MEDS: METHYLPREDNISOLONE SOD SUCC 40 MG/ML VIAL IV SCH ×3 (06:17→22:32)
[2021-10-30 08:00] VITALS: BP 155/89
[2021-10-30] MEDS: AMLODIPINE 10MG TABLET PO SCH (08:11)
[2021-10-30] MEDS: BUDESONIDE 0.5MG/2ML NEB HHN SCH ×3 (09:13→21:37)
[2021-10-30 12:00] VITALS: BP 91/47
[2021-10-30 16:00] VITALS: BP 149/77
[2021-10-30 20:00] VITALS: BP 133/79
[2021-10-30] MEDS: ATORVASTATIN CALCIUM 20MG TABLET PO SCH (20:28)
[2021-10-30] MEDS: GABAPENTIN 300MG CAPSULE PO SCH (20:28)
[2021-10-30] MEDS: AZITHROMYCIN 500 MG TABLET PO SCH (21:46)
[2021-10-31] VITALS: BP 125/57
[2021-10-31] MEDS: IPRATROPIUM/ALBUTEROL 0.5-3(2.5)MG/3ML NEB HHN SCH ×4 (01:57→20:43)
[2021-10-31 04:00] VITALS: BP 167/84
[2021-10-31] MEDS: HYDROCODONE/ACETAMINOPHEN 10/325MG TABLET PO PRN ×3 (04:18→14:33)
[2021-10-31] MEDS: CLONIDINE 0.1MG TABLET PO PRN ×2 (06:07→13:09)
[2021-10-31] MEDS: METHYLPREDNISOLONE SOD SUCC 40 MG/ML VIAL IV SCH ×3 (06:07→22:06)
[2021-10-31] MEDS ORDERED: GUAIFENESIN-DM 200MG-20MG/10ML UDC PO PRN (06:45)
[2021-10-31 08:00] VITALS: BP 155/87
[2021-10-31] MEDS: BUDESONIDE 0.5MG/2ML NEB HHN SCH ×2 (08:21→20:43)
[2021-10-31] MEDS: AMLODIPINE 10MG TABLET PO SCH (08:56)
[2021-10-31] MEDS: FAMOTIDINE 20MG TABLET PO SCH (08:56)
[2021-10-31 12:00] VITALS: BP 167/91
[2021-10-31 14:46] LABS: CLARITY URINE CLEAR (CLEAR); COLOR URINE YELLOW (YELLOW); KETONES URINE NEGATIVE (NEGATIVE); LEUKOCYTE ESTERASE URINE NEGATIVE (NEGATIVE); NITRITE URINE NEGATIVE (NEGATIVE); OCCULT BLOOD URINE NEGATIVE (NEGATIVE); PH URINE 5.5 (4.5-8.0); PROTEIN URINE NEGATIVE (NEGATIVE); SPECIFIC GRAVITY URINE 1.023 (1.005-1.030); UROBILINOGEN URINE 0.2 E.U./dL (0.2-1.0)
[2021-10-31 15:00] LABS: *AMPHETAMINES SCREEN URINE NEGATIVE (NEGATIVE); *BARBITURATES SCREEN URINE NEGATIVE (NEGATIVE); *BENZODIAZEPINES SCREEN URINE NEGATIVE (NEGATIVE); *COCAINE SCREEN URINE NEGATIVE (NEGATIVE); CANNABINOID URINE SCREEN NEGATIVE (NEGATIVE); METHADONE URINE SCREEN NEGATIVE (NEGATIVE); OPIATES URINE SCREEN PRESUMTIVE POSITIVE (NEGATIVE); PHENCYCLIDINE URINE SCREEN NEGATIVE (NEGATIVE)
[2021-10-31 16:00] VITALS: BP 152/86
[2021-10-31] MEDS ORDERED: MORPHINE SULFATE 2 MG/ML CPJ (NOT FOR IM USE) IV NR (16:30)
[2021-10-31 17:14] LABS: T4 FREE 0.89 ng/dL (0.76-1.46)
[2021-10-31 17:28] LABS: FOLIC ACID (FOLATE) SERUM 4.8 ng/mL (>5.38)
[2021-10-31 20:00] VITALS: BP 135/90
[2021-10-31] MEDS: ATORVASTATIN CALCIUM 20MG TABLET PO SCH (22:06)
[2021-10-31] MEDS: AZITHROMYCIN 500 MG TABLET PO SCH (22:06)
[2021-10-31] MEDS: GABAPENTIN 300MG CAPSULE PO SCH (22:06)
[2021-11-01] VITALS (7 sets, daily range): BP systolic 143–171; BP diastolic 85–109
[2021-11-01] MEDS: IPRATROPIUM/ALBUTEROL 0.5-3(2.5)MG/3ML NEB HHN SCH ×4 (01:00→20:52)
[2021-11-01] MEDS: HYDROCODONE/ACETAMINOPHEN 10/325MG TABLET PO PRN ×3 (01:44→14:32)
[2021-11-01] MEDS: CLONIDINE 0.1MG TABLET PO PRN ×2 (06:08→16:37)
[2021-11-01] MEDS: METHYLPREDNISOLONE SOD SUCC 40 MG/ML VIAL IV SCH ×3 (06:10→22:26)
[2021-11-01] MEDS: BUDESONIDE 0.5MG/2ML NEB HHN SCH ×3 (07:56→20:52)
[2021-11-01] MEDS: LIDOCAINE 5% PATCH TOP SCH (08:10)
[2021-11-01] MEDS: AMLODIPINE 10MG TABLET PO SCH (08:11)
[2021-11-01] MEDS: FAMOTIDINE 20MG TABLET PO SCH (08:11)
[2021-11-01 12:15] LABS: CHLORIDE 107 mEq/L (98-107)
[2021-11-01] MEDS: LOSARTAN POTASSIUM 50 MG TABLET PO SCH (18:30)
[2021-11-01] MEDS: ATORVASTATIN CALCIUM 20MG TABLET PO SCH (22:26)
[2021-11-01] MEDS: GABAPENTIN 300MG CAPSULE PO SCH (22:26)
[2021-11-01] MEDS: AZITHROMYCIN 500 MG TABLET PO SCH (22:28)
[2021-11-02 00:21] VITALS: BP 156/81
[2021-11-02] MEDS: HYDROCODONE/ACETAMINOPHEN 10/325MG TABLET PO PRN ×2 (02:17→09:09)
[2021-11-02] MEDS: IPRATROPIUM/ALBUTEROL 0.5-3(2.5)MG/3ML NEB HHN SCH ×3 (02:36→13:10)
[2021-11-02 04:00] VITALS: BP 157/76
[2021-11-02] MEDS: METHYLPREDNISOLONE SOD SUCC 40 MG/ML VIAL IV SCH ×2 (06:37→15:56)
[2021-11-02 08:01] VITALS: BP 178/119
[2021-11-02] MEDS: LIDOCAINE 5% PATCH TOP SCH (08:21)
[2021-11-02] MEDS: LOSARTAN POTASSIUM 50 MG TABLET PO SCH (08:21)
[2021-11-02] MEDS: AMLODIPINE 10MG TABLET PO SCH (08:21)
[2021-11-02] MEDS: FAMOTIDINE 20MG TABLET PO SCH (08:22)
[2021-11-02] MEDS: BUDESONIDE 0.5MG/2ML NEB HHN SCH (08:31)
[2021-11-02 11:59] VITALS: BP 170/107
[2021-11-02] MEDS ORDERED: MAGNESIUM/ALUMINUM HYDROXIDE/SIMETHICONE 30ML UDC PO PRN (12:15)
[2021-11-02] MEDS: CLONIDINE 0.1MG TABLET PO PRN (12:24)
[2021-11-02] MEDS ORDERED: NALOXONE HCL 0.4MG/ML VIAL IV PRN (12:30)
[2021-11-02 16:00] VITALS: BP 150/92
[2021-11-02 17:54] VITALS: BP 150/92
== END 2021-11-02 19:37 | DRG 189 ==
LOC: ER 15:18 → 8WST 19:11 → EDBEDREQ 19:13 → EDBEDREQTM 19:13 → ENRESERV 20:35 → 8WST 23:32
PROVIDERS: ADMIT Internal Medicine; ATTEND Internal Medicine
DX: J96.00 Acute respiratory failure, unspecified whether with hypoxia or hypercapnia (principal); J44.1 Chronic obstructive pulmonary disease with (acute) exacerbation; N17.9 Acute kidney failure, unspecified; E87.8 Other disorders of electrolyte and fluid balance, not elsewhere classified; E78.5 Hyperlipidemia, unspecified; E78.00 Pure hypercholesterolemia, unspecified; Z20.822 Contact with and (suspected) exposure to COVID-19; I12.9 Hypertensive chronic kidney disease with stage 1 through stage 4 chronic kidney disease, or unspecified chronic kidney disease; M48.061 Spinal stenosis, lumbar region without neurogenic claudication; M48.02 Spinal stenosis, cervical region; I16.0 Hypertensive urgency; G89.29 Other chronic pain; R26.9 Unspecified abnormalities of gait and mobility; N18.9 Chronic kidney disease, unspecified; Z88.0 Allergy status to penicillin; Z79.891 Long term (current) use of opiate analgesic; Z87.891 Personal history of nicotine dependence; M94.0 Chondrocostal junction syndrome [Tietze]
CPT/HCPCS: 36415; 70551; 71045; 72141; 72146; 72148; 76770; 80048; 80053; 80061; 80305; 81003; 82550; 82607; 82746; 83036; 83880; 84439; 84443; 84481; 84484; 85025; 86850; 86900; 87426; 93005; 93306; 94640; 97162; 97166; 99285; J0456; J2270; J2920; J2930; J7060; J7626